=== PATIENT | male | born 1960 | race Caucasian/White ===

== ENCOUNTER 2017-02-15 06:59 | Emergency (ER) | payer MEDICAID ==
[~2017-02-15] VITALS: Ht 180.3 cm; Wt 97.5 kg
[2017-02-15] MEDS ORDERED: HYDROcodone-ACET 10/325MG TAB PO ONE (08:45)
[2017-02-15 10:35] VITALS: BP 115/62
== END 2017-02-15 10:07 | disposition home or self-care (01) ==
LOC: ER 06:59
DX: K40.90 Unilateral inguinal hernia, without obstruction or gangrene, not specified as recurrent (principal); F17.210 Nicotine dependence, cigarettes, uncomplicated
CPT/HCPCS: 74176